=== PATIENT | female | born 1955 | race Caucasian/White ===

== ENCOUNTER 2017-12-01 08:55 | Day surgery (SDC) | payer BC ==
[2017-12-01] MEDS ORDERED: FENTAnyl 50 MCG/ML VIAL (10:46)
[2017-12-01] MEDS ORDERED: MIDAZOLAM 1 MG/ML 2 ML INJ ×2 (10:46)
== END 2017-12-01 11:29 | disposition home or self-care (01) ==
LOC: GIL 08:55
DX: K29.50 Unspecified chronic gastritis without bleeding (principal); K76.6 Portal hypertension; I85.10 Secondary esophageal varices without bleeding
CPT/HCPCS: 43239; 88305; 88312

== ENCOUNTER 2019-03-24 20:44 | Emergency (ER) | payer BC ==
[2019-03-24] MEDS: ACETAMINOPHEN 500 MG TAB PO (22:06)
[2019-03-24] MEDS: CEFTRIAXONE 1 GM/50 ML (PMX) 50 ML IVPB (23:24)
== END 2019-03-25 00:18 | disposition home or self-care (01) ==
LOC: FTE 03-25 00:18
DX: J18.9 Pneumonia, unspecified organism (principal); I10 Essential (primary) hypertension; E11.9 Type 2 diabetes mellitus without complications; Z79.84 Long term (current) use of oral hypoglycemic drugs; Z87.891 Personal history of nicotine dependence
CPT/HCPCS: 71045; 93005; 96365; 99284-25